=== PATIENT | female | born 1990 | race American Indian/Alaskan Native ===

== ENCOUNTER 2017-07-08 21:56 | Emergency (ER) | payer MEDICAID ==
[2017-07-08 22:26] VITALS: BP 115/77
== END 2017-07-09 06:12 | disposition left against medical advice (07) ==
LOC: ED 21:56
DX: Z53.21 Procedure and treatment not carried out due to patient leaving prior to being seen by health care provider (principal)
CPT/HCPCS: 87400; 93005; 93010

== ENCOUNTER 2018-07-04 15:37 | Emergency (ER) | payer MEDICAID ==
--- NOTE | 2018-07-04 16:20 | Emergency Department Report ---
ED General Adult HPI - General Chief complaint: Neck Pain/Injury Stated complaint: (L) SIDE NUMBNESS/NECK PAIN Time Seen by Provider: 07/04/18 16:01 Source: patient Mode of arrival: Ambulatory Limitations: No Limitations - History of Present Illness Initial comments: Mrs. Little is a healthy 28-year-old female with 1 week of left-sided neck pain just below the angle of her jaw. She also has left ear pressure with popping. She felt as if she had an ear infection. She also has tension in her neck throbbing sensation. Yesterday she noticed right facial twitching. She is under a lot of stress due to family issues. -: Gradual, week(s) (1) Location: head, neck Radiation: non-radiation Quality: dull Consistency: intermittent Worsens with: none Associated Symptoms: denies other symptoms - Related Data Previous Rx's Medication Instructions Recorded Last Taken Type Prednisone [predniSONE 10 mg 10 mg PO .TAPER #1 tab.ds.pk 07/04/18 Unknown Rx (6-Day Pack, 21 Tabs)] Allergies Allergy/AdvReac Type Severity Reaction Status Date / Time No Known Allergies Allergy Verified 07/04/18 15:47 ED Review of Systems ROS: Stated complaint: (L) SIDE NUMBNESS/NECK PAIN Other details as noted in HPI Comment: All other systems reviewed and negative Constitutional: denies: fever, malaise Respiratory: denies: cough Cardiovascular: denies: chest pain ED Past Medical Hx - Past Medical History Previous Medical History?: No - Surgical History Past Surgical History?: No - Family History Family history: other (father hx of MS) - Social History Smoking Status: Current Every Day Smoker - Medications Home Medications: Home Medications Medication Instructions Recorded Confirmed Last Taken Type Prednisone [predniSONE 10 mg 10 mg PO .TAPER #1 tab.ds.pk 07/04/18 Unknown Rx (6-Day Pack, 21 Tabs)] ED Physical Exam - General Limitations: No Limitations General appearance: alert, in no apparent distress - Head Head exam: Present: atraumatic, normocephalic - Eye Eye exam: Present: normal appearance - ENT ENT exam: Present: mucous membranes moist, other (right TM normal left TM serous clear effusion) - Neck Neck exam: Present: normal inspection, full ROM. Absent: tenderness, meningismus, lymphadenopathy, thyromegaly - Respiratory Respiratory exam: Present: normal lung sounds bilaterally. Absent: respiratory distress - Cardiovascular Cardiovascular Exam: Present: regular rate, normal rhythm, normal heart sounds. Absent: systolic murmur, diastolic murmur, rubs, gallop - GI/Abdominal GI/Abdominal exam: Present: soft, normal bowel sounds. Absent: distended, tenderness, guarding, rebound - Extremities Exam Extremities exam: Present: normal inspection - Back Exam Back exam: Present: normal inspection - Neurological Exam Neurological exam: Present: alert, oriented X3 - Psychiatric Psychiatric exam: Present: normal affect, normal mood - Skin Skin exam: Present: warm, dry, intact, normal color. Absent: rash ED Course Vital Signs 07/04/18 15:42 Temperature 98.4 F Pulse Rate 103 H Respiratory 18 Rate Blood Pressure 129/76 O2 Sat by Pulse 100 Oximetry ED Medical Decision Making - Medical Decision Making Mrs. Little has left ear effusion without infection, no mass or lymphadenitis present on neck exam. Facial twitching and neck tension attributed to stress. She has been severely upset due to marital problems. Rx: prednisone for tympanic effusion and possible lymphadenitis Critical care attestation.: If time is entered above; I have spent that time in minutes in the direct care of this critically ill patient, excluding procedure time. ED Disposition Clinical Impression: Facial twitching, Acute middle ear effusion Disposition: - TO HOME OR SELFCARE Is pt being admited?: No Does the pt Need Aspirin: No Condition: Stable Instructions: Cervical Sprain (ED), Earache (ED) Prescriptions: Prednisone [predniSONE 10 mg (6-Day Pack, 21 Tabs)] 10 mg PO .TAPER #1 tab.ds.pk Referrals: PUMA URIBE MD [Staff Physician] - 3-5 Days
== END 2018-07-04 16:25 | disposition home or self-care (01) ==
LOC: ED 15:37
CPT/HCPCS: 99282

== ENCOUNTER 2021-11-10 00:39 | Emergency (ER) | payer MEDICAID | END 2021-11-10 01:05 | LOC: ED 00:39 | DX: O26.891 Other specified pregnancy related conditions, first trimester (principal); O21.8 Other vomiting complicating pregnancy; R10.9 Unspecified abdominal pain; Z3A.08 8 weeks gestation of pregnancy; Z53.21 Procedure and treatment not carried out due to patient leaving prior to being seen by health care provider ==